=== PATIENT | female | born 1990 | race American Indian/Alaskan Native ===

== ENCOUNTER 2023-11-26 18:13 | Emergency (ER) | payer MEDICAID, OTHER ==
[2023-11-26] MEDS ORDERED: droPERidol 5 MG/2 ML SDV IVPUSH ONE (19:24)
[2023-11-26] MEDS ORDERED: Sodium Chloride 0.9% 1,000 ML IV ONE (19:24)
[2023-11-26 19:29] LABS: BASOPHILS PERCENT AUTO 0.1 % (0.1-1.3); HEMATOCRIT 36.9 % (34.3-46.0); IMMATURE GRAN ABSOLUTE AUTO 0.07 K/uL (0.00-0.23); IMMATURE GRAN PERCENT AUTO 0.5 % (0.0-0.7); LYMPHOCYTES ABSOLUTE AUTO 0.25 K/uL (0.8-3.3); LYMPHOCYTES PERCENT AUTO 1.8 % (11.4-47.7); MEAN CORPUSCULAR HEMOGLOBIN 31.6 pg (31.6-35.5); MEAN CORPUSCULAR HGB CONC 35.2 g/dL (31.6-35.5); MEAN CORPUSCULAR VOLUME 89.6 fL (81.4-99.0); MONOCYTES ABSOLUTE AUTO 0.13 K/uL (0.20-0.90); MONOCYTES PERCENT AUTO 0.9 % (3.3-12.6); NEUTROPHILS ABSOLUTE AUTO 13.72 K/uL (1.0-7.6); NEUTROPHILS PERCENT AUTO 96.7 % (40.0-78.1); PLATELET COUNT,PLT 287 K/uL (130-375); RED BLOOD CELL COUNT 4.12 M/uL (3.77-5.24); WHITE BLOOD CELL COUNT,WBC 14.2 K/uL (3.2-11.0)
[2023-11-26 19:31] LABS: BASOPHILS ABSOLUTE AUTO 0.02 K/uL (0.00-0.10)
[2023-11-26 19:38] LABS: ALANINE AMINOTRANSFERASE,ALT 21 U/L (12-78); ALKALINE PHOSPHATASE 49 U/L (46-116); ASPARTATE AMNIOTRANSFERASE,AST 20 U/L (15-37); BILIRUBIN TOTAL 0.4 mg/dL (0.2-1.0); BLOOD UREA NITROGEN,BUN 9 mg/dL (7-18); CALCIUM 8.4 mg/dL (8.5-10.1); CARBON DIOXIDE,CO2 27 mmol/L (21-32); CHLORIDE,CL 101 mmol/L (100-108); CREATININE 0.6 mg/dL (0.6-1.0); EST CRCL DRUG DOSING (CG) 107.01 mL/min; ESTIMATED GFR 123 mL/min (>60); GLUCOSE RANDOM 124 mg/dL (74-106); POTASSIUM,K 3.4 mmol/L (3.6-5.2); SODIUM,NA 138 mmol/L (140-148)
[2023-11-26 19:39] LABS: ANION GAP 13.4 mmol/L (5.0-14.0); C-REACTIVE PROTEIN < 0.50 mg/dL (<0.50)
[2023-11-26] MEDS ORDERED: Iopamidol 612 MG/ML 100 ML Bottle IV SCH (20:00)
== END 2023-11-26 21:21 | disposition home or self-care (01) ==
LOC: JP.ED 18:13
DX: R11.10 Vomiting, unspecified (principal)
CPT/HCPCS: 36415; 74177; 74177-26; 80053; 83605; 83690; 85025; 86140; 96361; 96374; 99284; 99284-25; J1790; J7030; Q9967